=== PATIENT | female | born 1950 | race Caucasian/White ===

== ENCOUNTER → 2018-08-22 | Outpatient (CLI) | payer MEDICARE, OTHER ==
[~2018-08-22] MED LIST: ALBU8.5H8 INH; AZEL137S4 NAS; BENZ100C PO; BRIM5DRO4 EACHEYE; CETI10CA PO; CYAN1TAB29 PO; ESOM20CA PO; FEXO60TA24 PO; FLUO40CA9 PO; FLUT50BL INH; IPRA30SP NS; LATA2.5D3 EACHEYE; LEVO200T PO; METO25TA35 PO; MILK175C2 PO; MYCO500T PO; TRAZ-136 PO; [UNRECOGNIZED DRUG - CODE] PO; melatonin PO
== END | disposition home or self-care (01) ==
LOC: STAR 14:16
PROVIDERS: ATTEND Internal Medicine
DX: Z01.818 Encounter for other preprocedural examination (principal); K29.70 Gastritis, unspecified, without bleeding
CPT/HCPCS: 93005

== ENCOUNTER 2018-08-27 10:07 | Day surgery (SDC) | payer MEDICARE, OTHER ==
[~2018-08-27] VITALS: Ht 154.9 cm; Wt 72.2 kg
[2018-08-27] MEDS ORDERED: LACTATED RINGERS 1,000 ML IV SCH (10:29)
[2018-08-27 10:55] VITALS: BP 113/66
[2018-08-27] MEDS ORDERED: FENTANYL PF 100 MCG/2ML IV PRN (11:00)
[2018-08-27] MEDS ORDERED: ACETAMINOPHEN 325 MG TABLET PO PRN (11:00)
[2018-08-27] MEDS ORDERED: MIDAZOLAM 1 MG/ML, 2ML IV PRN (11:00)
[2018-08-27] MEDS ORDERED: MEPERIDINE/PF 25MG/0.5ML IVPush PRN (11:00)
[2018-08-27] MEDS ORDERED: ALBUTEROL SULFATE 2.5 MG/3 ML NPPB PRN (11:00)
[2018-08-27] MEDS ORDERED: OXYcodone 5 MG/5 ML ORAL.SOL UDC PO PRN (11:00)
[2018-08-27] MEDS ORDERED: ONDANSETRON 2MG/ML, 2ML IV PRN (11:00)
[2018-08-27] MEDS ORDERED: PROPOFOL 10 MG/ML, 20ML ONE (12:15)
== END 2018-08-27 13:40 | disposition home or self-care (01) ==
LOC: OUT 10:07
PROVIDERS: ATTEND Internal Medicine
DX: K25.9 Gastric ulcer, unspecified as acute or chronic, without hemorrhage or perforation (principal); K29.60 Other gastritis without bleeding; K57.30 Diverticulosis of large intestine without perforation or abscess without bleeding; K31.9 Disease of stomach and duodenum, unspecified; K22.9 Disease of esophagus, unspecified; F32.9 Major depressive disorder, single episode, unspecified; I25.10 Atherosclerotic heart disease of native coronary artery without angina pectoris; K21.9 Gastro-esophageal reflux disease without esophagitis; Z88.8 Allergy status to other drugs, medicaments and biological substances; Z87.39 Personal history of other diseases of the musculoskeletal system and connective tissue
CPT/HCPCS: 43239; 88305; J2704; J7120

== ENCOUNTER → 2018-09-10 | Outpatient (CLI) | payer MEDICARE, OTHER | END | disposition home or self-care (01) | LOC: CFH 12:08 | PROVIDERS: ATTEND Family Medicine | DX: Z12.31 Encounter for screening mammogram for malignant neoplasm of breast (principal); Z13.820 Encounter for screening for osteoporosis; M85.88 Other specified disorders of bone density and structure, other site; N95.9 Unspecified menopausal and perimenopausal disorder | CPT/HCPCS: 77080; 77067 ==